=== PATIENT | male | born 1965 | race Caucasian/White ===

== ENCOUNTER 2017-11-21 08:04 | Day surgery (SDC) | payer OTHER ==
[~2017-11-21] VITALS: Ht 175.3 cm; Wt 78.1 kg
[~2017-11-21 08:04] MED LIST: Benadryl 50 mg50 MG PO; CEPH500 PO; OXYC10TA19 PO; Pepcid40 MG PO; Percocet 5-3251 EACH PO; Prednisone20 MG PO
[2017-11-21] MEDS ORDERED: TAMS.4ER PO (08:23)
== END 2017-11-21 11:20 | disposition home or self-care (01) ==
LOC: ORSCSDS 08:04
PROVIDERS: Podiatrist Foot & Ankle Surgery
PROC: 0JNR0ZZ Release Left Foot Subcutaneous Tissue and Fascia, Open Approach (ICD-10-PCS; principal; 2017-11-21 09:30)
PROC: 0JNQ0ZZ Release Right Foot Subcutaneous Tissue and Fascia, Open Approach (ICD-10-PCS; principal; 2017-11-21 09:30)
DX: M72.2 Plantar fascial fibromatosis (principal); F17.210 Nicotine dependence, cigarettes, uncomplicated
CPT/HCPCS: J0171; J0690; J1100; J1885; J2250; J2405; J3010; J7120

== ENCOUNTER 2018-03-11 08:03 | Day surgery (SDC) | payer OTHER ==
[~2018-03-11] VITALS: Ht 172.7 cm; Wt 80.7 kg
[~2018-03-11 08:03] MED LIST changes: +ANTI-INFLAMMATORY; +TAMS.4ER PO
== END 2018-03-11 22:51 | disposition home or self-care (01) ==
LOC: ORSCMMR 08:03 → ORD 09:00 → ORSCMMR 22:51
PROVIDERS: Internal Medicine Gastroenterology
PROC: 0DJD8ZZ Inspection of Lower Intestinal Tract, Via Natural or Artificial Opening Endoscopic (ICD-10-PCS; principal; 2018-03-11 09:00)
DX: Z12.11 Encounter for screening for malignant neoplasm of colon (principal); Z87.891 Personal history of nicotine dependence
CPT/HCPCS: J7030

== ENCOUNTER 2020-01-04 07:12 | Day surgery (SDC) | payer OTHER ==
[~2020-01-04] VITALS: Ht 175.3 cm; Wt 79.4 kg
[~2020-01-04 07:12] MED LIST changes: +Bactrim Ds Tab1 EACH PO
--- NOTE | 2020-01-04 08:41 | NUR ---
01/04/20 0841 Irina De Los Santos BLOCK DONE BY DR. ZUNIGA ON LEFT SHOULDER. PT. TOLERATED PROCEDURE WELL. PT. WAS MONITORED WITH HR & SATS. SATS 93-95% WHILE BLOCK BEING DONE.
== END 2020-01-04 12:29 | disposition home or self-care (01) ==
LOC: ORSCSDS 07:12
PROVIDERS: Orthopaedic Surgery
PROC: 0LS24ZZ Reposition Left Shoulder Tendon, Percutaneous Endoscopic Approach (ICD-10-PCS; principal; 2020-01-04 08:30)
PROC: 0LQ24ZZ Repair Left Shoulder Tendon, Percutaneous Endoscopic Approach (ICD-10-PCS; principal; 2020-01-04 08:30)
PROC: 0RNK4ZZ Release Left Shoulder Joint, Percutaneous Endoscopic Approach (ICD-10-PCS; principal; 2020-01-04 08:30)
PROC: 0RBK4ZZ Excision of Left Shoulder Joint, Percutaneous Endoscopic Approach (ICD-10-PCS; principal; 2020-01-04 08:30)
DX: M75.122 Complete rotator cuff tear or rupture of left shoulder, not specified as traumatic (principal); M75.42 Impingement syndrome of left shoulder; S46.102A Unspecified injury of muscle, fascia and tendon of long head of biceps, left arm, initial encounter; Z87.891 Personal history of nicotine dependence; K21.9 Gastro-esophageal reflux disease without esophagitis
CPT/HCPCS: A9270-GY; C1713; J0171; J0690; J1100; J2250; J2370; J2405; J2704; J3010; J7120

== ENCOUNTER → 2020-11-16 | Outpatient (CLI) | payer OTHER ==
[2020-11-16 15:38] LABS: Body Fluid Crystals NEG (NEGATIVE)
[2020-11-16 15:44] LABS: BODY FLUID RBC 0.075 M/mm3 (0-0); RBC Count, Synovial Fluid 75000 /mm3 (0-0); WBC Count, Synovial Fluid 6575 /mm3 (0-180)
[2020-11-16 16:32] LABS: Appearance, Synovial Fluid Bloody (Clear); Color, Synovial Fluid Red (None-P Yel); Lymphs, Synovial Fluid 75 % (0-15); Monocytes/Macrophages, Synovia 22 % (0-65); Neutrophils, Synovial Fluid 3 % (0-24)
== END ==
LOC: LAB SHORT 13:10 → LAB 13:10
PROVIDERS: Physician Assistant
DX: M70.22 Olecranon bursitis, left elbow (principal)
CPT/HCPCS: 87070; 87075; 87205; 89051; 89060

== ENCOUNTER 2021-03-14 06:06 | Day surgery (SDC) | payer OTHER ==
[~2021-03-14] VITALS: Ht 175.3 cm; Wt 83.1 kg
[2021-03-14 15:29] LABS: Body Fluid Crystals POS (NEGATIVE)
== END 2021-03-14 09:37 | disposition home or self-care (01) ==
LOC: ORSCSDS 06:06
PROVIDERS: Orthopaedic Surgery
PROC: 0MB40ZZ Excision of Left Elbow Bursa and Ligament, Open Approach (ICD-10-PCS; principal; 2021-03-14 07:30)
DX: M70.22 Olecranon bursitis, left elbow (principal); Z87.891 Personal history of nicotine dependence
CPT/HCPCS: 88304; 89060; J0171; J0690; J1100; J1885; J2405; J2704; J3010; J7120

== ENCOUNTER 2025-03-06 21:58 | Emergency (ER) | payer OTHER ==
[~2025-03-06] VITALS: Ht 175.3 cm; Wt 68.0 kg
[2025-03-06] MEDS ORDERED: CeFAZolin Sodium 2,000 MG in NS 100 ML IV ONE (22:10)
[2025-03-06 22:17] LABS: BASOPHILS ABSOLUTE AUTO 0.04 K/mm3 (0.00-0.23); BASOPHILS PERCENT AUTO 0 % (0-2); EOSINOPHILS ABSOLUTE AUTO 0.43 K/mm3 (0.00-0.68); EOSINOPHILS PERCENT AUTO 5 % (0-6); Hematocrit 40.4 % (37.0-53.0); Hemoglobin 13.4 g/dL (13.5-17.5); IMMATURE GRAN ABSOLUTE AUTO 0.07 K/mm3 (0.00-0.10); IMMATURE GRAN PERCENT AUTO 1 % (0-1); LYMPHOCYTES ABSOLUTE AUTO 2.18 K/mm3 (0.84-5.20); LYMPHOCYTES PERCENT AUTO 23 % (21-46); MONOCYTES ABSOLUTE AUTO 0.89 K/mm3 (0.16-1.47); MONOCYTES PERCENT AUTO 10 % (4-13); Mean Corpuscular HGB Conc 33.2 g/dL (31.5-36.5); Mean Corpuscular Volume 99 fL (80-100); NEUTROPHILS ABSOLUTE AUTO 5.69 K/mm3 (1.96-9.15); NEUTROPHILS PERCENT AUTO 61 % (41-73); NRBC ABSOLUTE 0.00 K/mm3 (0.00-0.02); NRBC Auto 0.0 /100 WBC (0.0-0.2); Platelet Count 246 K/mm3 (150-400); RDW Coefficient Variation 13.2 % (11.7-14.2); RDW Standard Deviation 48.1 fL (35.1-46.3)
[2025-03-06 22:32] LABS: Prothrombin Time Results 11.0 Sec (9.7-11.5)
[2025-03-06 22:40] LABS: Alanine Aminotransfer (ALT/SGP 23.0 U/L (12-78); Albumin, Blood 3.1 g/dL (3.4-5.0); Albumin/Globulin Ratio 0.9 (0.8-1.8); Anion Gap 6.0 mmol/L (3-11); Aspartate Aminotrans (AST/SGOT 20.0 U/L (12-37); Bilirubin, Total 0.2 mg/dL (0.1-1.0); Blood Urea Nitrogen 18.0 mg/dL (8-24); CO2, Blood 25.0 mmol/L (21-32); Calcium, Blood 8.1 mg/dL (8.5-10.1); Chloride, Blood 112.0 mmol/L (98-108); Creatinine, Blood 1.36 mg/dL (0.60-1.20); Ethanol (Alcohol), Blood, Med 207.0 mg/dL; Globulin, Blood 3.4 g/dL (2.2-4.0); Glucose, Blood 119.0 mg/dL (70-99); Potassium, Blood 3.9 mmol/L (3.5-5.5); Sodium, Blood 139.0 mmol/L (136-145); Total Protein, Blood 6.5 g/dL (6.4-8.2)
[2025-03-06] MEDS ORDERED: NiCARdipine HCL 50 MG in NS 250 ML IV SCH (23:50)
[2025-03-07] MEDS ORDERED: Morphine Sulfate 4 MG/1 ML Injection IV ONE (00:15)
[2025-03-07] MEDS ORDERED: Morphine Sulfate 4 MG/1 ML Injection ONE (00:17)
[2025-03-07 00:51] VITALS: BP 157/91
[2025-03-07 01:06] LABS: Source, Urine Clean Catch
[2025-03-07 01:08] LABS: Bilirubin, Urine Neg (Neg); Glucose Qualitative, Urine Neg (Neg); Ketones, Urine Neg (Neg); Leukocyte Esterase, Urine Neg (Neg); Protein, Urine 3+ (Neg); Specific Gravity, Urine 1.020 (1.003-1.022); Urobilinogen, Urine NORM (Normal)
[2025-03-07 01:17] LABS: Color, Urine Yellow (P-Yellow)
[2025-03-07 01:18] LABS: White Blood Cells, Urine 0-2 /hpf (0-5)
[2025-03-07 01:23] LABS: U Amphetamine Screen Not Detected; U Barbituate Screen Not Detected; U Benzodiazapine Screen Not Detected; U Buprenorphine Screen Not Detected; U Cannabinoids Screen Not Detected; U Cocaine Screen Not Detected; U Methadone Screen Not Detected; U Methamphetamine Screen Not Detected; U Opiates Screen Not Detected; U Oxycodone Screen Not Detected; U Phencyclidine Screen Not Detected
== END 2025-03-07 01:25 | disposition short-term general hospital (02) ==
LOC: ER 21:58
PROVIDERS: Emergency Medicine
DX: S06.5XAA Traumatic subdural hemorrhage with loss of consciousness status unknown, initial encounter (principal); S06.6XAA Traumatic subarachnoid hemorrhage with loss of consciousness status unknown, initial encounter; S02.19XA Other fracture of base of skull, initial encounter for closed fracture; S32.10XA Unspecified fracture of sacrum, initial encounter for closed fracture; S81.812A Laceration without foreign body, left lower leg, initial encounter; S41.012A Laceration without foreign body of left shoulder, initial encounter; S40.212A Abrasion of left shoulder, initial encounter; V89.2XXA Person injured in unspecified motor-vehicle accident, traffic, initial encounter; Z87.891 Personal history of nicotine dependence
CPT/HCPCS: 12004; 51702; 70450; 71045; 71260; 72125; 72170; 73030; 73590; 74177; 80053; 80320; 81001; 82550; 83690; 85025; 85610; 86850; 86900; 86901; 90471; 90715; 93005; 93010; 96365; 96367; 96375; 99285-25; J0690; J2270; J7050; Q9967